=== PATIENT | male | born 1965 | race Two or more races ===

== ENCOUNTER → 2024-10-10 | Outpatient (CLI) | payer OTHER, SELFPAY ==
--- NOTE | 2024-10-10 13:30 | ECHO_ITS ---
Transthoracic Echo Report Ht (in): 67 Wt (lb): 150 Exam Location: Echo Lab Status: Outpatient Document Control Coordinator: REED Perez^^^^ Indications: Procedure Performed: BP: / HR: 54 Technical Quality: Good MEASUREMENTS (Male / Female) Normal Values 2D ECHO LV Diastolic Diameter PLAX 5.1 cm 4.2 - 5.9 / 3.9 - 5.3 cm LV Systolic Diameter PLAX 3.4 cm IVS Diastolic Thickness 1.0 cm 0.6 - 1.0 / 0.6 - 0.9 cm LVPW Diastolic Thickness 0.9 cm 0.6 - 1.0 / 0.6 - 0.9 cm LV Relative Wall Thickness 0.4 LVOT Diameter 1.9 cm Aortic Root Diameter 3.2 cm LA Systolic Diameter LX 4.0 cm 3.0 - 4.0 / 2.7 - 3.8 cm LV Ejection Fraction MOD BP 61.9 % >= 55 % LV Cardiac Index MOD BP 2563.8 cm?/min?m? LV Ejection Fraction MOD 4C 62.3 % LV Cardiac Index MOD 4C 2692.9 cm?/min?m? LV Ejection Fraction 4C AL 63.8 % LV Cardiac Index 4C AL 2910.7 cm?/min?m? LV Ejection Fraction MOD 2C 62.0 % LV Cardiac Index MOD 2C 2437.8 cm?/min?m? LV Ejection Fraction 2C AL 63.3 % LV Cardiac Index 2C AL 2500.9 cm?/min?m? LA Volume Index 38.3 cm?/m? 16 - 28 cm?/m? Ascending Aorta Diameter 2.8 cm DOPPLER AV Peak Velocity 177.0 cm/s AV Peak Gradient 12.5 mmHg AV Mean Gradient 7.0 mmHg AV Velocity Time Integral 38.1 cm AI Peak Velocity 216.0 cm/s AI Peak Gradient 18.7 mmHg AI Pressure Half Time 1539.0 ms LVOT Peak Velocity 96.1 cm/s LVOT Peak Gradient 3.7 mmHg LVOT Velocity Time Integral 32.6 cm LVOT Cardiac Index 2774.9 cm?/min?m? AV Area Cont Eq vti 2.4 cm? AV Area Cont Eq pk 1.5 cm? MV Area PHT 4.5 cm? MR Peak Velocity 543.0 cm/s MR Peak Gradient 117.9 mmHg Mitral E Point Velocity 85.3 cm/s Mitral A Point Velocity 81.1 cm/s Mitral E to A Ratio 1.1 LV E' Lateral Velocity 11.5 cm/s Mitral E to LV E' Lateral Ratio 7.4 LV E' Septal Velocity 6.7 cm/s Mitral E to LV E' Septal Ratio 12.8 TR Peak Velocity 265.7 cm/s TR Peak Gradient 28.2 mmHg PV Peak Velocity 110.0 cm/s PV Peak Gradient 4.8 mmHg RVOT Peak Velocity 77.6 cm/s FINDINGS Left Ventricle Normal left ventricular size, wall thickness, systolic function with no obvious regional wall motion abnormalities.there is grade II diastolic dysfunction of the left ventricle (pseudonormal filling pattern). The left ventricular ejection fraction is normal, estimated at 55-60%. Right Ventricle The right ventricle is normal in size and systolic function. The estimated right ventricular systolic pressure, 40 mmHg. Left Atrium The left atrium is normal by two-dimensional, color flow and Doppler imaging with no structural abnormalities, no thrombus formation present. Right Atrium The right atrium is normal by two-dimensional imaging, color flow and Doppler imaging with no structural abnormalities, no thrombus formation present. Atrial Septum The interatrial septum appears normal with no evidence of a shunt. Aorta The aorta is normal by two-dimensional, color flow and Doppler interrogation. Mitral Valve Moderate mitral regurgitation. Mild mitral annular calcification. Aortic Valve Trace to mild aortic valve regurgitation. Tricuspid Valve There is mild tricuspid valve regurgitation. Pulmonic Valve Trivial pulmonic valve regurgitation. Vessels The pulmonary artery appears normal. The inferior vena cava pulmonary and hepatic veins appear normal. Pericardium The pericardium is normal by two-dimensional imaging. There is no significant pericardial effusion. CONCLUSIONS Indication: SOB Normal LV size and function. EF 55-60%. Normal diastolic function Normal RV size and function. Estimated RVSP 35 mm hg.Mild TR. Mild MAC, mild MR. Mild Av sclerosis iwthouotr stenosis. No pericardial effusion. Vivek Kim (Electronically Signed) Final Date: 12 October 2024 18:48
== END | disposition home or self-care (01) ==
PROVIDERS: PCP Physician Assistant Medical; Referring Provider Physician Assistant Medical; Visit Provider Physician Assistant Medical
DX: I08.3 Combined rheumatic disorders of mitral, aortic and tricuspid valves (principal)
CPT/HCPCS: 93306